=== PATIENT | male | born 1975 | race Caucasian/White ===

== ENCOUNTER 2016-11-03 12:17 | Emergency (ER) | payer BC ==
[2016-11-03 12:48] LABS: Hemoglobin 16.5 gm/dL (13.5-18.0); Mean Corpuscular Hemoglobin 31.7 pg (27-31); Mean Corpuscular Hgb Conc 33.7 g/dl (32-36); Mean Platelet Volume 9.4 fl (6.0-9.5); Neutrophil # 9.9 K/mm3 (1.3-6.0); Neutrophil % 76.2 % (42-75.0); Platelet Count 309 K/mm3 (150-450); Red Blood Count 5.21 M/mm3 (4.7-6.0); Red Cell Distribution Width 13.1 % (11.5-14.0)
[2016-11-03 12:54] LABS: Urine Bilirubin 3 mg/dl (NEGATIVE); Urine Ketone 50 mg/dL (NEGATIVE); Urine Nitrite Negative (NEGATIVE); Urine Protein 30 mg/dL (NEGATIVE); Urine Specific Gravity >=1.030 SP.GR. (1.005-1.030); Urine Urobilinogen Normal (NORMAL)
[2016-11-03 13:02] LABS: Anion Gap 14.2 mmol/L (6.8-13.8); BUN/Creatinine Ratio 8.9 (9.0-21.6); Bilirubin, Total 0.5 mg/dL (0.0-1.1); Ca. Corrected For Albumin 8.6 mg/dL (8.4-10.2); Calcium * 8.9 mg/dL (7.9-10.9); Carbon Dioxide 26.9 mmol/L (24-32.6); Potassium 4.1 mmol/L (3.4-4.6); Total Protein 7.5 gm/dL (6.2-8.2)
[2016-11-03 13:07] LABS: Urine Appearance Clear; Urine Bacteria TRACE; Urine Blood 10 /ul (NEGATIVE); Urine Color Dark Yellow; Urine Hyaline Cast TRACE /LPF; Urine RBC 0-5 /hpf (0-5); Urine WBC None Seen /hpf (0-5)
[2016-11-03 13:08] LABS: Urine Mucus Few - 1+
[2016-11-03 13:12] VITALS: BP 144/74
--- NOTE | 2016-11-03 13:23 | ERNOTE ---
Abdominal HPI - Narrative Date of Service: 11/03/16 - General Chief Complaint: Abdominal Pain Time Seen by Provider: 11/03/16 13:23 Source: patient, RN notes reviewed Exam Limitations: no limitations - Immun/Allergies/Home Medications Immunizatons: IMMUNIZATION HX Immunizations Up to Date Yes History of Influenza Vaccine No Hx Pneumococcal Vaccination No Allergies/Adverse Reactions: Allergies azithromycin [From Zithromax Z-Jones] Allergy (Verified 11/03/16 12:32) Home Medications: HOME MEDICATIONS metroNIDAZOLE [Flagyl] 500 mg PO Q8H #30 tablet 11/03/16 [Last Taken Unknown] - History of Present Illness Narrative: 40 y/o male to ED for abdominal pain and diarrhea that began 5 days ago. He was seen in a walk in clinic elsewhere and diagnosed with viral gastroenteritis the day his symptoms began. He thought that he was improving, but then began having more pain late last night. He denies any nausea or vomiting. He was taking cefuroxime for a sinus infection just before his GI symptoms began. Date (Duration): 10/29/16 Associated Symptoms: Present: fatigue, loss of appetite. Absent: headache, back pain, chest pain, neck pain, diaphoresis, diarrhea-gross blood, diarrhea- mucous, fever/chills, heartburn, nausea, vomiting, shortness of breath, swelling /mass in abdomen, syncope, weakness Prior Abdominal Problems: Present: none Review of Systems - Review of Systems Constitutional: Present: See HPI EYE: Present: no symptoms reported ENT: Present: no symptoms reported Respiratory: Absent: shortness of breath, cough Cardiology: Absent: chest pain, palpitations, syncope Gastrointestinal/Abdominal: Present: See HPI Genitourinary: Absent: dysuria, other - oliguria Musculoskeletal: Present: See HPI Skin: Present: no symptoms reported Neurological: Present: See HPI Endocrine: Present: no symptoms reported Hematologic/Lymphatic: Present: no symptoms reported Psych: Present: no symptoms reported - Patient's Past Medical History Patient History - Medical: No pertinent hx Patient History - Cardiac/Respiratory: No pertinent hx Patient History - Cancer: No Hx of Cancer Patient History - Surgical Procedures: No surgical history - Social History Living Situations: home Smoking Status: Former smoker Alcohol Use: occasionally Drug Use: none Physical Exam - Physical Exam General Appearance: Present: wd/wn, alert, no apparent distress Neck: Present: normal inspection, nontender, supple Respiratory: Present: no respiratory distress, normal breath sounds, no accessory muscle use, lungs clear Cardiovascular/Chest: Present: regular rate, rhythm, no murmur, normal peripheral pulses Gastrointestinal/Abdominal: Present: normal bowel sounds, nondistended, soft, tenderness - mild in left upper quad, moderate in left lower quad Extremity Exam: Present: normal inspection, no edema Neurological Exam: Present: alert, oriented, normal mood/affect, no motor/ sensory deficits Skin Exam: Present: normal color, warm/dry ED Progress - Results and Orders Patient's Lab Results:: I have reviewed the patient's lab results. - Vital Signs Patient's Vital Signs:: I have reviewed the patient's vital signs. Vital Signs: Vital Signs 11/03/16 11/03/16 12:27 13:12 Temperature 35.2 C L Pulse Rate 97 80 Respiratory 16 16 Rate Blood Pressure 150/81 144/74 O2 Sat by Pulse 98 98 Oximetry - X-Ray X-Ray #1 X-Ray: abdomen Interpretation: Reviewed by me X-ray Comments: COMPARISONS: None available.. FINDINGS: Abdomen Flat W/ Upright *: No subdiaphragmatic free air. No abnormal dilation of large or small bowel. Scattered air-fluid levels are noted in the abdomen. No definite pathologic calcifications apparent. Osseous structures are intact. IMPRESSION: 1. Abnormal bowel gas pattern suggestive of colitis or enteritis. No definite signs of mechanical intestinal obstruction. Electronically signed by Mackenzie Garcia M.D.. - Progress/Reassessment Chief Complaint: Abdominal Pain Progress:: Unchanged Plan - Plan Plan: Patient denies need for pain medication. Has elevated WBC and air fluid levels suggestive of colitis on xray. Will treat for CDiff in light of recent antibiotic use. Departure - Departure Clinical Impression: Diarrhea of presumed infectious origin Disposition: Home self-care Condition: Good Instructions: Clostridium Difficile Infection, [id number], Form - Excuse from Work, School, or Physical Activity Additional Instructions: Finish all of your antibiotic - do not drink alcohol while taking it A probiotic supplement may be helpful - Culturelle is good Return for persistent blood in stools, vomiting, severe pain or other worsening symptoms Prescriptions: metroNIDAZOLE [Flagyl] 500 mg PO Q8H #30 tablet
== END 2016-11-03 13:42 | disposition home or self-care (01) ==
LOC: ER 12:17
DX: A08.39 Other viral enteritis (principal); Z87.891 Personal history of nicotine dependence